=== PATIENT | male | born 1950 | race Caucasian/White ===

== ENCOUNTER 2017-10-24 18:32 | Emergency (ER) | payer OTHER, BC ==
[~2017-10-24] VITALS: Ht 175.3 cm; Wt 129.5 kg
[2017-10-24 18:33] VITALS: BP 183/72; PULSE 107; RESP 18; TEMP 99.7; O2SAT 94
--- NOTE | 2017-10-24 19:24 | RADRPT ---
EXAM DATE/TIME: 10/24/2017 19:05 [place] COMPARISON: No previous studies available for comparison. INDICATIONS : Dizziness starting today MEDICAL HISTORY : Chronic obstructive pulmonary disease. Myocardial infarction. Stroke SURGICAL HISTORY : Cardiac stent ENCOUNTER: Initial ACUITY: 1 day PAIN SCORE: 0/10 LOCATION: Bilateral chest FINDINGS: PA and lateral views of the chest demonstrate a consolidation in the right middle lobe. Left lung rachel ar. Right lung is clear.. The cardiomediastinal contours are unremarkable. Osseous structures are i ntact. CONCLUSION: Right middle lobe pneumonia laterally. Left lung is clear. Negrito Valles MD on October 24, 2017 at 19:21 Board Certified Radiologist. This report was verified electronically.
[2017-10-24 22:07] VITALS: O2SAT 99
[2017-10-24 22:09] LABS: AUTOMATED NEUTROPHIL # 8.7 TH/MM3 (1.8-7.7); BASOPHIL % 0.4 % (0.0-2.0); EOSINOPHIL % 0.1 % (0.0-4.0); HEMATOCRIT 42.5 % (39.0-51.0); HEMOGLOBIN 14.3 GM/DL (13.0-17.0); LYMPH % 15.5 % (9.0-44.0); LYMPHOCYTE # 1.8 TH/MM3 (1.0-4.8); MEAN CELL VOLUME 91.4 FL (80.0-100.0); MEAN CORPUSCULAR HEMOGLOBIN 30.7 PG (27.0-34.0); MEAN CORPUSCULAR HGB CONC 33.6 % (32.0-36.0); MEAN PLATELET VOLUME 8.6 FL (7.0-11.0); PLATELET COUNT 217 TH/MM3 (150-450); RED BLOOD COUNT 4.65 MIL/MM3 (4.50-5.90); RED CELL DISTRIBUTION WIDTH 13.2 % (11.6-17.2); WHITE BLOOD COUNT 11.6 TH/MM3 (4.0-11.0)
[2017-10-24] MEDS ORDERED: cefTRIAXone INJ 1,000 MG in SODIUM CHLORIDE 0.9% INJ 100 ML IV ONE (22:30)
[2017-10-24] MEDS ORDERED: AZITHROMYCIN INJ 500 MG in SODIUM CHLOR 0.9% 250 ML INJ 250 ML IV ONE (22:30)
[2017-10-24] MEDS ORDERED: ACETAMINOPHEN 325 MG TAB PO ONE (22:30)
[2017-10-24 22:31] LABS: BICARBONATE 27.6 MEQ/L (21.0-32.0); CALCIUM 9.3 MG/DL (8.5-10.1); CREATININE 1.74 MG/DL (0.60-1.30)
[2017-10-24] MEDS ORDERED: BENZ100 PO (22:43)
[2017-10-24] MEDS ORDERED: LEVA750T9 PO (22:43)
--- NOTE | 2017-10-24 22:47 | PD ---
HPI Chief Complaint: Cold / Flu Symptoms Time Seen by Provider: 22:02 Travel History International Travel<30 days: No Contact w/Intl Traveler<30days: No Traveled to known affect area: No History of Present Illness HPI 67-year-old male that presents to the ED for evaluation of cold-like symptoms for the past 3 days. Per patient he has history of this in the past and has been diagnosed with pneumonia. The patient has a history of COPD but uses no inhalers. He states that he's been having chills and sweats but no cough or congestion. No shortness of breath or chest pain. No sick contacts. No allergies to medication. No urinary or bowel movement issues. Has not seen anybody for this. no other medical issues at this time. PFSH Past Medical History Cardiovascular Problems: Yes High Cholesterol: Yes COPD: Yes Cerebrovascular Accident: Yes (2014, left sided deficit) Diabetes: Yes Patient Takes Glucophage: Yes Diminished Hearing: No Hypertension: Yes Respiratory: Yes Myocardial Infarction: Yes (2006) Sleep Apnea: Yes Tetanus Vaccination: Unknown Influenza Vaccination: Yes Past Surgical History Coronary Stent: Yes (2006) Social History Alcohol Use: No Tobacco Use: No Substance Use: No Allergies-Medications (Allergen,Severity, Reaction): Coded Allergies: No Known Allergies (Unverified , 10/24/17) Reported Meds & Prescriptions Reported Meds & Active Scripts Active Tessalon Perles (Benzonatate) 100 Mg Cap 100 Mg PO TID PRN Levaquin (Levofloxacin) 750 Mg Tablet 750 Mg PO DAILY 7 Days Review of Systems Except as stated in HPI: all other systems reviewed are Neg Physical Exam Narrative GENERAL: Well-nourished, well-developed patient in no apparent distress. SKIN: Warm and dry. HEAD: Atraumatic. Normocephalic. EYES: Pupils equal and round reactive to light and accommodation. No scleral icterus. No injection or drainage. ENT: No nasal bleeding or discharge. Mucous membranes pink and moist. TMs are clear with no sign of infection or perforation. No mastoid tenderness. Ear canals are intact bilaterally. No lymphadenopathy. Nostril mucosa is red and moist with clear mucus noted. No sinus tenderness to palpation noted. Tonsils are not enlarged or swollen. No ulvua Deviation. Tongue is midline. NECK: Trachea midline. No JVD. No meningeal signs noted CARDIOVASCULAR: Regular rate and rhythm. RESPIRATORY: No accessory muscle use. Clear to auscultation. Breath sounds equal bilaterally. GASTROINTESTINAL: Abdomen soft, non-tender, nondistended. Hepatic and splenic margins not palpable. MUSCULOSKELETAL: Extremities without clubbing, cyanosis, or edema. No obvious deformities. NEUROLOGICAL: Awake and alert. No obvious cranial nerve deficits. Motor grossly within normal limits. Five out of 5 muscle strength in the arms and legs. Normal speech. PSYCHIATRIC: Appropriate mood and affect; insight and judgment normal. Data Data Last Documented VS Vital Signs Date Time Temp Pulse Resp B/P (MAP) Pulse Ox O2 Delivery O2 Flow Rate FiO2 10/24/17 22:07 99 Room Air 10/24/17 18:33 99.7 107 18 Orders Orders Chest, Pa & Lat (10/24/17 ) Complete Blood Count With Diff (10/24/17 21:44) Basic Metabolic Panel (Bmp) (10/24/17 21:44) Blood Culture (10/24/17 21:44) Iv Access Insert/Monitor (10/24/17 21:44) Ecg Monitoring (10/24/17 21:44) Oxygen Administration (10/24/17 21:44) Oximetry (10/24/17 21:44) Electrocardiogram (10/24/17 21:44) Lactic Acid Sepsis Protocol (10/24/17 21:46) Influenzae A/B Antigen (10/24/17 21:48) Ceftriaxone Inj (Rocephin Inj) (10/24/17 22:30) Azithromycin Inj (Zithromax Inj) (10/24/17 22:30) Acetaminophen (Tylenol) (10/24/17 22:30) Ed Discharge Order (10/24/17 22:43) Labs Laboratory Tests Test 10/24/17 22:00 White Blood Count 11.6 TH/MM3 Red Blood Count 4.65 MIL/MM3 Hemoglobin 14.3 GM/DL Hematocrit 42.5 % Mean Corpuscular Volume 91.4 FL Mean Corpuscular Hemoglobin 30.7 PG Mean Corpuscular Hemoglobin Concent 33.6 % Red Cell Distribution Width 13.2 % Platelet Count 217 TH/MM3 Mean Platelet Volume 8.6 FL Neutrophils (%) (Auto) 75.0 % Lymphocytes (%) (Auto) 15.5 % Monocytes (%) (Auto) 9.0 % Eosinophils (%) (Auto) 0.1 % Basophils (%) (Auto) 0.4 % Neutrophils # (Auto) 8.7 TH/MM3 Lymphocytes # (Auto) 1.8 TH/MM3 Monocytes # (Auto) 1.0 TH/MM3 Eosinophils # (Auto) 0.0 TH/MM3 Basophils # (Auto) 0.0 TH/MM3 CBC Comment DIFF FINAL Differential Comment Blood Urea Nitrogen 23 MG/DL Creatinine 1.74 MG/DL Random Glucose 336 MG/DL Calcium Level 9.3 MG/DL Sodium Level 132 MEQ/L Potassium Level 4.1 MEQ/L Chloride Level 97 MEQ/L Carbon Dioxide Level 27.6 MEQ/L Anion Gap 7 MEQ/L Estimat Glomerular Filtration Rate 39 ML/MIN Lactic Acid Level 1.9 mmol/L MDM Medical Decision Making Medical Screen Exam Complete: Yes Emergency Medical Condition: Yes Medical Record Reviewed: Yes Interpretation(s) CBC & BMP Diagram 10/24/17 22:00 Calcium Level 9.3 Last Impressions Chest X-Ray 10/24/17 0000 Signed Impressions: Service Date/Time: Tuesday, October 24, 2017 19:05 - CONCLUSION: Right middle lobe pneumonia laterally. Left lung is clear. Negrito Valles MD flu negative Differential Diagnosis Pneumonia versus URI versus bronchitis Narrative Course 67-year-old male with signs and symptoms consistent with cold-like symptoms. Patient was properly examined and was found to have signs and symptoms consistent with appears to be cold-like symptoms. Labs and imaging ordered. Labs and imaging consistent with pneumonia. Patient will be treated for this with antibiotics. Case was discussed with my attending who agrees with plan. Patient was given IV antibiotics and sent home with prescription for Levaquin and Tessalon Perles. Told to follow with PCP. See ED worsening symptoms. Patient agrees and understands plan. Diagnosis Primary Impression: Pneumonia Qualified Codes: J18.1 - Lobar pneumonia, unspecified organism Patient Instructions: General Instructions Additional Instructions: Motrin and Tylenol for pain and fever. You can use [id number] antihistamine as well as well as Mucinex as needed for runny nose and congestion. Cough drops for cough as needed. Drink plenty of fluids. Follow-up with PCP. See ED for worsening symptoms. Med/Other Pt SpecificInfo: Prescription(s) given Scripts Benzonatate (Tessalon Perles) 100 Mg Cap 100 MG PO TID Y for COUGH, #15 CAP 0 Refills Prov: Arjun Pierre MD 10/24/17 Levofloxacin (Levaquin) 750 Mg Tablet 750 MG PO DAILY for Infection for 7 Days, #7 TAB 0 Refills Prov: Arjun Pierre MD 10/24/17 Disposition: 01 DISCHARGE HOME Condition: Fam Ulloa Oct 24, 2017 22:47
[2017-10-24] MEDS ORDERED: METO25TA3 PO (23:02)
[2017-10-24] MEDS ORDERED: CLOP300 (23:02)
[2017-10-24] MEDS ORDERED: LANTUS2P SQ (23:02)
[2017-10-24] MEDS ORDERED: METF-382 PO (23:02)
[2017-10-24] MEDS ORDERED: NOVOLOGSS SQ (23:04)
[2017-10-24] MEDS ORDERED: ATOR20TA15 PO (23:04)
[2017-10-24] MEDS ORDERED: HYDR12.57 PO (23:04)
--- NOTE | 2017-10-25 16:01 | EKG ---
Date Performed: 10/24/2017 Time Performed: 22:11:14 PTAGE: 67 years EKG: Sinus rhythm NONSPECIFIC T-WAVE ABNORMALITY BORDERLINE ECG NO PREVIOUS TRACING DOCTOR: Asha Hernandez Interpretating Date/Time 10/25/2017 16:00:27
== END 2017-10-24 23:37 | disposition home or self-care (01) ==
LOC: NEPE 18:32
DX: J18.1 Lobar pneumonia, unspecified organism (principal); J44.0 Chronic obstructive pulmonary disease with (acute) lower respiratory infection; E11.9 Type 2 diabetes mellitus without complications; I10 Essential (primary) hypertension; R94.31 Abnormal electrocardiogram [ECG] [EKG]
CPT/HCPCS: 71046; 80048; 83605; 85025; 87040; 87804; 93005; 96365; 96375; 99285; J0456; J0696; J7050